=== PATIENT | female | born 1980 | race American Indian/Alaskan Native ===

== ENCOUNTER 2019-09-24 09:19 | Outpatient (CLI) | payer BC ==
--- NOTE | 2019-09-28 10:36 | Mammography Report ---
DIGITAL SCREENING MAMMOGRAM WITH TOMOSYNTHESIS WITH CAD, 09/24/2019 INDICATION: Routine Screening Mammography. SCREENING MAMMOGRAM TECHNIQUE: Digital bilateral 2D and 3D mammography with tomosynthesis was obtained in the craniocau aravind and mediolateral oblique projections. Computer-Aided Detection (CAD) analysis was used for inter pretation of this study. COMPARISON: 08/21/2018 and 08/12/2018 FINDINGS: Breast Density: The breasts are heterogeneously dense, which may obscure small masses. Right circumscribed asymmetries (images 13 and 32 of the MLO siddharth series and images 9 and 11 of the C C siddharth series) require additional imaging. There is no evidence of dominant mass, suspicious calcific ations or architectural distortion in the left breast. IMPRESSION: Right asymmetries requiring additional imaging. Recommend recall for targeted right breas t ultrasound of the lower inner quadrant. Follow up recommendation: Ultrasound Category 0: Incomplete. Needs additional imaging evaluation and/or prior mammograms for comparison. A "normal" or negative report should not discourage follow up or biopsy of a clinically significant f inding. A written summary of these findings will be mailed to the patient. The patient will be entered into a mammography reporting system which will generate a reminder letter for the patient's next appointmen t at the appropriate interval. The [employer] recommends yearly mammograms starting at age 40 and continuing as l ingrid as a woman is in good health. Breast MRI is recommended for women with an approximate 20-25% or greater lifetime risk of breast cancer, including women with a strong family history of breast or ova cielo cancer or who have been treated for Hodgkin's disease. Signer Name: Richie Carey MD Signed: 09/28/2019 10:31 AM Workstation Name: [id number]
== END 2019-09-24 09:20 | disposition home or self-care (01) ==
LOC: SPVWC 09:19
PROVIDERS: ATTEND Obstetrics & Gynecology
DX: Z12.31 Encounter for screening mammogram for malignant neoplasm of breast (principal)
CPT/HCPCS: 77063; 77067

== ENCOUNTER 2019-10-15 08:28 | Outpatient (CLI) | payer BC ==
--- NOTE | 2019-10-15 09:25 | Ultrasound Report ---
RIGHT BREAST ULTRASOUND HISTORY: Recall to evaluate circumscribed densities at screening mammography. COMPARISON: 09/24/2019 mammogram with tomosynthesis. FINDINGS: Sonographic evaluation focused upon the 3-6 o'clock location of the right breast demonstrat es several benign cysts which correlate with mammographic densities. A cluster of benign cysts at 5 :00 4 cm from the nipple measures 1.4 x 0.7 x 0.9 cm and correlates with the dominant asymmetry on th e mammogram. A benign cyst at 4:00 5 cm from the nipple measures 3 x 3 x 2 mm and correlates with a s maller mammographic density. No solid mass or shadowing. IMPRESSION: Benign cysts at 4:00 and 5:00 and no suspicious finding. If the clinical examination remains stable, recommend bilateral annual screening mammographic evaluat ion. BIRADS 2: Benign Signer Name: Richie Carey MD Signed: 10/15/2019 9:20 AM Workstation Name: [id number]
== END 2019-10-15 08:29 | disposition home or self-care (01) ==
LOC: SPVWC 08:28
PROVIDERS: ATTEND Obstetrics & Gynecology
DX: N60.01 Solitary cyst of right breast (principal); R92.8 Other abnormal and inconclusive findings on diagnostic imaging of breast

== ENCOUNTER 2021-01-06 08:27 | Outpatient (CLI) | payer BC ==
--- NOTE | 2021-01-06 09:50 | Mammography Report ---
DIGITAL SCREENING MAMMOGRAM WITH CAD, 01/06/2021 CLINICAL INFORMATION / INDICATION: Routine screening mammography. TECHNIQUE: Digital bilateral 2D mammography was obtained in the craniocaudal and mediolateral obliqu e projections. This examination was interpreted with the benefit of Computer-Aided Detection analysis . COMPARISON: 08/12/2018 FINDINGS: Breast Density: The breasts are heterogeneously dense, which may obscure small masses. No dominant mass, suspicious calcifications, or architectural distortion in either breast. No interval change. IMPRESSION: No mammographic evidence of malignancy. Follow up recommendation: Routine yearly BI-RADS Category 1: Negative. A "normal" or negative report should not discourage follow up or biopsy of a clinically significant f inding. A written summary of these findings will be mailed to the patient. The patient will be entered into a mammography reporting system which will generate a reminder letter for the patient's next appointmen t at the appropriate interval. The [employer] recommends yearly mammograms starting at age 40 and continuing as l ingrid as a woman is in good health. Breast MRI is recommended for women with an approximate 20-25% or greater lifetime risk of breast cancer, including women with a strong family history of breast or ova cielo cancer or who have been treated for Hodgkin's disease. Signer Name: Sue Tom MD Signed: 01/06/2021 9:46 AM Workstation Name: [id number]
== END 2021-01-06 08:28 | disposition home or self-care (01) ==
LOC: SPVWC 08:27
PROVIDERS: ATTEND Obstetrics & Gynecology
DX: Z12.31 Encounter for screening mammogram for malignant neoplasm of breast (principal)
CPT/HCPCS: 77067